=== PATIENT | female | born 1975 | race Caucasian/White ===

== ENCOUNTER 2021-03-24 07:52 | Emergency (ER) | payer BC ==
--- NOTE | 2021-03-24 08:03 | ERPHSYRPT ---
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 She is also been exposed to her mother and stepfather who have both tested positive for COVID-19 infection. On Sunday she noticed low-grade fevers. Since that time she has had headache and dizziness. Patient does have a history of migraine headaches and an intracranial mass but this headache is different. She did not suffer any head trauma. Patient has a history of Shyann's thyroiditis. Patient denies chest pain. She denies shortness of breath. She has a sore throat but no cough. She has no abdominal pain. She has had no nausea vomiting or diarrhea. Patient to go home Covid test yesterday and it was positive. She has been vaccinated. Patient's primary care provider is Dr. Jenkins. Timing/Duration: day(s) (2) Fever Severity: mild Fever Therapy MANAGER LINE: none Associated Symptoms: headache, sore throat Allergies/Adverse Reactions: No Known Drug Allergies Allergy (Unverified 08/30/12 09:34) Home Medications: Levothyroxine Sodium [Tirosint-Viky] 112 mcg PO DAILY 03/24/21 [History] Hx Tetanus, Diphtheria Vaccination/Date Given: No Hx Influenza Vaccination/Date Given: Yes (2011) Hx Pneumococcal Vaccination/Date Given: No Travel Risk - International Travel Have you traveled outside of the country in past 3 weeks: No - Coronavirus Screening Are you exhibiting any of the following symptoms?: Yes Symptoms: Fever, Headaches/Body Aches/Fatigue Close contact with a COVID-19 positive Pt in past 14-21 Days: Yes - Vaccine Status Have you recieved a Covid-19 vaccination: Yes - Review of Systems Constitutional: No Symptoms Eyes: No Symptoms Ears, Nose, & Throat: Throat Pain Respiratory: No Symptoms Cardiac: No Symptoms Abdominal/Gastrointestinal: No Symptoms Genitourinary Symptoms: No Symptoms Musculoskeletal: No Symptoms Skin: No Symptoms Neurological: Dizziness, Headache Psychological: No Symptoms Endocrine: No Symptoms Hematologic/Lymphatic: No Symptoms Immunological/Allergic: No Symptoms All Other Systems: Reviewed and Negative - Past Medical History Pertinent Past Medical History: Yes Neurological History: No Pertinent History ENT History: No Pertinent History Cardiac History: No Pertinent History, Arrhythmia, Other Respiratory History: No Pertinent History Endocrine Medical History: Other GI Medical History: No Pertinent History Psycho-Social History: No Pertinent History Female Reproductive Disorders: Other Other Medical History: Hypotension and bradycardia - Past Surgical History Past Surgical History: No Female Surgical History: Breast Implant - Social History Smoking Status: Never smoker Exposure to second hand smoke: No Drug Use: none Patient Lives Alone: No - Nursing Vital Signs Nursing Vital Signs: Initial Vital Signs Temperature 99 F 03/24/21 08:02 Pulse Rate 85 03/24/21 08:02 Respiratory Rate 15 03/24/21 08:02 Blood Pressure 119/77 03/24/21 08:02 O2 Sat by Pulse Oximetry 98 03/24/21 08:02 Pain Scale Pain Intensity 8 - Physical Exam General Appearance: no apparent distress, alert, thin Eye Exam: PERRL/EOMI, eyes nml inspection ENT Exam: normal ENT inspection, pharynx normal Neck Exam: normal inspection, non-tender, supple, full range of motion, trachea midline Respiratory Exam: normal breath sounds, lungs clear, no respiratory distress, no accessory muscle use, No chest non-tender, No respiratory distress Cardiovascular/Chest Exam: normal heart sounds, regular rate/rhythm Gastrointestinal/Abdominal Exam: soft, non tender, no distention, no mass, no guarding, no ecchymosis, no organomegaly, no pulsatile mass, normal bowel sounds Pelvic Exam: not done Rectal Exam: not done Extremity Exam: non-tender Neurologic Exam: alert, oriented x 3, cooperative, 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, normal mood/affect, nml cerebellar function, nml station & gait, sensation nml Skin Exam: normal color, warm, dry Lymphatic: No adenopathy SpO2 Interpretation: normal O2 Delivery: Room Air - Course Nursing assessment & vital signs reviewed: Yes Ordered Tests: Active Orders 24 hr Category Date Time Status EKG-ER Only STAT Care 03/24/21 08:23 Active IV Insertion STAT Care 03/24/21 08:23 Active Isolation, Initiate & Maintain STAT Care 03/24/21 08:26 Active CHEST 1 VIEW (PORTABLE) Stat Exams 03/24/21 08:23 Completed HEAD WITHOUT CONTRAST [CT] Stat Exams 03/24/21 08:40 Completed BLOOD CULTURE Stat Lab 03/24/21 09:00 Received CBC W DIFF Stat Lab 03/24/21 08:59 Completed CMP Stat Lab 03/24/21 08:59 Completed D-DIMER QUANTITATIVE Stat Lab 03/24/21 08:59 Completed Ferritin Stat Lab 03/24/21 08:59 Completed INFLUENZA A+B LUIS Stat Lab 03/24/21 09:00 Completed LDH-LACTATE DEHYDROGENASE Stat Lab 03/24/21 08:59 Completed Lactic Acid Stat Lab 03/24/21 08:23 Completed [place] Screen Stat Lab 03/24/21 08:59 Completed T4 (Thyroxine) Stat Lab 03/24/21 08:59 Completed TROPONIN Q3H Lab 03/24/21 08:59 Completed TROPONIN Q3H Lab 03/24/21 11:30 Ordered TROPONIN Q3H Lab 03/24/21 14:30 Ordered TROPONIN Q3H Lab 03/24/21 17:30 Ordered TROPONIN Q3H Lab 03/24/21 20:30 Ordered TSH, 3RD Generation Stat Lab 03/24/21 08:59 Completed UA W/RFX UR CULTURE Stat Lab 03/24/21 09:51 Completed Medication Summary Discontinued Medications Generic Name Dose Route Start Last Admin Trade Name Freq PRN Reason Stop Dose Admin Hydrocodone Bitart/Acetaminophen 10 ml 03/24/21 08:25 03/24/21 09:57 Hydrocodone/Acetaminophen 5 Ml Udcup PO 03/24/21 08:26 10 ml STAT STA Administration Hydrocodone Bitart/Acetaminophen Confirm 03/24/21 09:44 Hydrocodone/Acetaminophen 5 Ml Udcup Administered 03/24/21 09:45 Dose 10 ml .ROUTE .STK-MED ONE Methylprednisolone Sodium 0 mg 03/24/21 08:41 03/24/21 09:57 Succinate 125 mg/ Sterile IV 03/24/21 08:42 125 mg Water 2 ml STAT ONE Administration Sodium Chloride 1,000 mls @ 999 mls/hr 03/24/21 08:23 03/24/21 09:56 Sodium Chloride 0.9% 1000 Ml IV 03/24/21 09:23 999 mls/hr .Q1H1M STA Administration Sodium Chloride Confirm 03/24/21 09:44 Sodium Chloride 0.9% 1000 Ml Administered 03/24/21 09:45 Dose 1,000 mls @ ud .ROUTE .STK-MED ONE Methylprednisolone Sodium Succinate Confirm 03/24/21 09:44 Methylprednis Sod Succ 125 Mg/2 Ml Vial Administered 03/24/21 09:45 Dose 125 mg .ROUTE .STK-MED ONE Lab/Rad Data: Laboratory Result Diagrams 03/24/21 08:59 03/24/21 08:59 Laboratory Results 03/24/21 03/24/21 03/24/21 Range/Units 09:51 09:00 09:00 WBC (4.0-10.5) K/mm3 RBC (4.1-5.4) M/mm3 Hgb (12.0-16.0) gm/dl Hct (35-47) % MCV (78-100) fl MCH (26-32) pg MCHC (32-36) g/dl RDW (11.5-14.0) % Plt Count (150-450) K/mm3 MPV (7.5-11.0) fl Gran % (36.0-66.0) % Eos # (Auto) (0-0.5) Absolute Lymphs (auto) (1.0-4.6) Absolute Monos (auto) (0.0-1.3) Lymphocytes % (24.0-44.0) % Monocytes % (0.0-12.0) % Eosinophils % (0.00-5.0) % Basophils % (0.0-0.4) % Absolute Granulocytes (1.4-6.9) Basophils # (0-0.4) D-Dimer (215-500) ng/mL Sodium (137-145) mmol/L Potassium (3.5-5.1) mmol/L Chloride (98-107) mmol/L Carbon Dioxide (22-30) mmol/L Anion Gap (5-15) MEQ/L BUN (7-17) mg/dL Creatinine (0.52-1.04) mg/dL Estimated GFR ML/MIN Glucose (74-106) mg/dL Lactic Acid (0.4-2.0) Calcium (8.4-10.2) mg/dL Ferritin (6.24-137) ng/mL Total Bilirubin (0.2-1.3) mg/dL AST (14-36) U/L ALT (0-35) U/L Alkaline Phosphatase (38-126) U/L Lactate Dehydrogenase (120-246) U/L Troponin I (0.000-0.034) ng/mL Serum Total Protein (6.3-8.2) g/dL Albumin (3.5-5.0) g/dL Thyroxine (T4) (5.53-10.96) ug/dL TSH 3rd Generation (0.47-4.68) mIU/L Urine Color STRAW (YELLOW) Urine Appearance CLEAR (CLEAR) Urine pH 6.0 (5-6) Ur Specific [place] 1.003 (1.005-1.025) Urine Protein NEGATIVE (Negative) Urine Ketones NEGATIVE (NEGATIVE) Urine Blood NEGATIVE (0-5) Brian/ul Urine Nitrite NEGATIVE (NEGATIVE) Urine Bilirubin NEGATIVE (NEGATIVE) Urine Urobilinogen NEGATIVE (0-1) mg/dL Ur Leukocyte Esterase NEGATIVE (NEGATIVE) Urine WBC (Auto) 0-2 (0-5) /HPF Urine RBC (Auto) 0-2 (0-2) /HPF U Epithel Cells (Auto) NONE (FEW) /HPF Urine Bacteria (Auto) FEW (NEGATIVE) /HPF Urine Culture Reflexed NO (NO) Urine Glucose NEGATIVE (NEGATIVE) mg/dL Monoscreen (Negative) Influenza Type A Ag NEGATIVE (NEGATIVE) Influenza Type B Ag NEGATIVE (NEGATIVE) Group A Strep Antibody NOT DETECTED (NEGATIVE) 03/24/21 03/24/21 03/24/21 Range/Units 08:59 08:59 08:59 WBC (4.0-10.5) K/mm3 RBC (4.1-5.4) M/mm3 Hgb (12.0-16.0) gm/dl Hct (35-47) % MCV (78-100) fl MCH (26-32) pg MCHC (32-36) g/dl RDW (11.5-14.0) % Plt Count (150-450) K/mm3 MPV (7.5-11.0) fl Gran % (36.0-66.0) % Eos # (Auto) (0-0.5) Absolute Lymphs (auto) (1.0-4.6) Absolute Monos (auto) (0.0-1.3) Lymphocytes % (24.0-44.0) % Monocytes % (0.0-12.0) % Eosinophils % (0.00-5.0) % Basophils % (0.0-0.4) % Absolute Granulocytes (1.4-6.9) Basophils # (0-0.4) D-Dimer < 215 L (215-500) ng/mL Sodium (137-145) mmol/L Potassium (3.5-5.1) mmol/L Chloride (98-107) mmol/L Carbon Dioxide (22-30) mmol/L Anion Gap (5-15) MEQ/L BUN (7-17) mg/dL Creatinine (0.52-1.04) mg/dL Estimated GFR ML/MIN Glucose (74-106) mg/dL Lactic Acid (0.4-2.0) Calcium (8.4-10.2) mg/dL Ferritin (6.24-137) ng/mL Total Bilirubin (0.2-1.3) mg/dL AST (14-36) U/L ALT (0-35) U/L Alkaline Phosphatase (38-126) U/L Lactate Dehydrogenase (120-246) U/L Troponin I < 0.012 (0.000-0.034) ng/mL Serum Total Protein (6.3-8.2) g/dL Albumin (3.5-5.0) g/dL Thyroxine (T4) (5.53-10.96) ug/dL TSH 3rd Generation (0.47-4.68) mIU/L Urine Color (YELLOW) Urine Appearance (CLEAR) Urine pH (5-6) Ur Specific [place] (1.005-1.025) Urine Protein (Negative) Urine Ketones (NEGATIVE) Urine Blood (0-5) Brian/ul Urine Nitrite (NEGATIVE) Urine Bilirubin (NEGATIVE) Urine Urobilinogen (0-1) mg/dL Ur Leukocyte Esterase (NEGATIVE) Urine WBC (Auto) (0-5) /HPF Urine RBC (Auto) (0-2) /HPF U Epithel Cells (Auto) (FEW) /HPF Urine Bacteria (Auto) (NEGATIVE) /HPF Urine Culture Reflexed (NO) Urine Glucose (NEGATIVE) mg/dL Monoscreen NEGATIVE (Negative) Influenza Type A Ag (NEGATIVE) Influenza Type B Ag (NEGATIVE) Group A Strep Antibody (NEGATIVE) 03/24/21 03/24/21 03/24/21 Range/Units 08:59 08:59 08:23 WBC 4.1 (4.0-10.5) K/mm3 RBC 4.66 (4.1-5.4) M/mm3 Hgb 13.7 (12.0-16.0) gm/dl Hct 43.2 (35-47) % MCV 92.7 (78-100) fl MCH 29.4 (26-32) pg MCHC 31.7 L (32-36) g/dl RDW 12.3 (11.5-14.0) % Plt Count 122 L (150-450) K/mm3 MPV 11.9 H (7.5-11.0) fl Gran % 83.7 H (36.0-66.0) % Eos # (Auto) 0.04 (0-0.5) Absolute Lymphs (auto) 0.30 L (1.0-4.6) Absolute Monos (auto) 0.31 (0.0-1.3) Lymphocytes % 7.3 L (24.0-44.0) % Monocytes % 7.5 (0.0-12.0) % Eosinophils % 1.0 (0.00-5.0) % Basophils % 0.5 (0.0-0.4) % Absolute Granulocytes 3.46 (1.4-6.9) Basophils # 0.02 (0-0.4) D-Dimer (215-500) ng/mL Sodium 140 (137-145) mmol/L Potassium 4.1 (3.5-5.1) mmol/L Chloride 103 (98-107) mmol/L Carbon Dioxide 27 (22-30) mmol/L Anion Gap 14.3 (5-15) MEQ/L BUN 13 (7-17) mg/dL Creatinine 0.85 (0.52-1.04) mg/dL Estimated GFR > 60.0 ML/MIN Glucose 91 (74-106) mg/dL Lactic Acid 0.7 (0.4-2.0) Calcium 9.6 (8.4-10.2) mg/dL Ferritin 249 H (6.24-137) ng/mL Total Bilirubin 0.70 (0.2-1.3) mg/dL AST 26 (14-36) U/L ALT 15 (0-35) U/L Alkaline Phosphatase 94 (38-126) U/L Lactate Dehydrogenase 114 L (120-246) U/L Troponin I (0.000-0.034) ng/mL Serum Total Protein 7.2 (6.3-8.2) g/dL Albumin 4.5 (3.5-5.0) g/dL Thyroxine (T4) 13.5 H (5.53-10.96) ug/dL TSH 3rd Generation 0.196 L (0.47-4.68) mIU/L Urine Color (YELLOW) Urine Appearance (CLEAR) Urine pH (5-6) Ur Specific [place] (1.005-1.025) Urine Protein (Negative) Urine Ketones (NEGATIVE) Urine Blood (0-5) Brian/ul Urine Nitrite (NEGATIVE) Urine Bilirubin (NEGATIVE) Urine Urobilinogen (0-1) mg/dL Ur Leukocyte Esterase (NEGATIVE) Urine WBC (Auto) (0-5) /HPF Urine RBC (Auto) (0-2) /HPF U Epithel Cells (Auto) (FEW) /HPF Urine Bacteria (Auto) (NEGATIVE) /HPF Urine Culture Reflexed (NO) Urine Glucose (NEGATIVE) mg/dL Monoscreen (Negative) Influenza Type A Ag (NEGATIVE) Influenza Type B Ag (NEGATIVE) Group A Strep Antibody (NEGATIVE) - Progress Progress: improved, re-examined Progress Note: 03/24/21 10:11 CAT scan of the head shows no intracranial abnormality. Chest x-ray shows no acute cardiopulmonary process. Counseled pt/family regarding: lab results, diagnosis, need for follow-up, rad results - Departure Departure Disposition: Home Clinical Impression: Fever, Headache, Viral illness, Hyperthyroidism Condition: Stable Critical Care Time: No Referrals: JAGRUTI JENKINS MD [Primary Care Provider] - Follow up/PCP as directed Additional Instructions: Drink plenty of fluids. Take medication as prescribed. Follow-up with your primary care provider for further management. Quarantine yourself until you receive the results of your COVID-19 test. Forms: Work/School Release Form
[2021-03-24] MEDS ORDERED: Sodium Chloride 0.9% 1000 ML 1,000 ML IV STA (08:23)
[2021-03-24] MEDS ORDERED: HYDROCODONE-ACETAMIN 2.5-108/5 ML SOLUTION PO STA (08:25)
[2021-03-24] MEDS ORDERED: solu-MEDROL 125 MG, Sterile H2O 10 ml 2 ML IV ONE ×2 (08:41)
[2021-03-24 09:02] LABS: Absolute Neutrophil Ct (ANC) 3.46 (1.4-6.9); BASOPHIL % 0.5 % (0.0-0.4); Basophil (Absolute #) 0.02 (0-0.4); Eosinophil (Absolute #) 0.04 (0-0.5); Hematocrit 43.2 % (35-47); Hemoglobin 13.7 gm/dl (12.0-16.0); Lymphocytes % 7.3 % (24.0-44.0); Mean Cell Volume 92.7 fl (78-100); Mean Corpuscular Hemoglobin 29.4 pg (26-32); Mean Corpuscular Hgb Concent. 31.7 g/dl (32-36); Mean Platelet Volume 11.9 fl (7.5-11.0); Monocyte (Absolute #) 0.31 (0.0-1.3); Monocytes % 7.5 % (0.0-12.0); Neutrophil % 83.7 % (36.0-66.0); Platelet Count 122 K/mm3 (150-450); Red Blood Count 4.66 M/mm3 (4.1-5.4); Red Cell Distribution Width 12.3 % (11.5-14.0); White Blood Count 4.1 K/mm3 (4.0-10.5)
[2021-03-24 09:24] LABS: INFLUENZA A NEGATIVE (NEGATIVE); INFLUENZA B NEGATIVE (NEGATIVE)
--- NOTE | 2021-03-24 09:41 | XRAY ---
Indication: Headache. Mass. Multiple contiguous axial images obtained through the head without contrast. Comparison: August 17, 2010. Ventriculosulcal pattern appears symmetric. No acute intracranial hemorrhage, abnormal extra-axial fluid collection, or mass effect. Fourth ventricle is midline without hydrocephalus. Horner-white matter differentiation preserved. Bony calvarium intact. Left sphenoid sinus demonstrates grossly stable complete opacification. Left sphenoid sinus and petrous portion of the left temporal bone demonstrate grossly stable dysplastic appearance. 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 Remaining paranasal sinuses and mastoid air cells are clear. Impression: Continued negative CT head without contrast exam with stable chronic features detailed above.
[2021-03-24] MEDS ORDERED: Sodium Chloride 0.9% 1000 ML 1,000 ML ONE (09:44)
[2021-03-24] MEDS ORDERED: solu-MEDROL ONE (09:44)
[2021-03-24] MEDS ORDERED: HYDROCODONE-ACETAMIN 2.5-108/5 ML SOLUTION ONE (09:44)
--- NOTE | 2021-03-24 10:07 | XRAY ---
Indication: Fever. Comparison: August 30, 2012. Portable chest again demonstrates normal heart, lungs, and bony thorax.
[2021-03-24 10:08] LABS: ALBUMIN 4.5 g/dL (3.5-5.0); ALKALINE PHOSPHATASE 94 U/L (38-126); ANION GAP 14.3 MEQ/L (5-15); BLOOD UREA NITROGEN 13 mg/dL (7-17); CHLORIDE 103 mmol/L (98-107); Calcium 9.6 mg/dL (8.4-10.2); Carbon Dioxide 27 mmol/L (22-30); Creatinine 1 0.85 mg/dL (0.52-1.04); EST GLOMERULAR FILTRATION RATE > 60.0 ML/MIN; Ferritin 249 ng/mL (6.24-137); Glucose 91 mg/dL (74-106); LDH-LACTATE DEHYDROGENASE 114 U/L (120-246); Potassium 4.1 mmol/L (3.5-5.1); SGOT/AST 26 U/L (14-36); SGPT/ALT 15 U/L (0-35); SODIUM 140 mmol/L (137-145); T4 (Thyroxine) 13.5 ug/dL (5.53-10.96); TSH, 3RD Generation 0.196 mIU/L (0.47-4.68); Total Protein 7.2 g/dL (6.3-8.2)
[2021-03-24 10:14] LABS: Appearance CLEAR (CLEAR); Bacteria FEW /HPF (NEGATIVE); Bilirubin NEGATIVE (NEGATIVE); Blood NEGATIVE Ery/ul (0-5); Glucose NEGATIVE (NEGATIVE); Ketones NEGATIVE (NEGATIVE); Leukocyte Esterase NEGATIVE (NEGATIVE); Nitrite NEGATIVE (NEGATIVE); Protein,Urine Dip NEGATIVE (Negative); RBC 0-2 /HPF (0-2); Specific Gravity 1.003 (1.005-1.025); Urobilinogen NEGATIVE mg/dL (0-1); WBC 0-2 /HPF (0-5)
[2021-03-24 11:07] VITALS: BP 101/60; PULSE 64; O2SAT 95
== END 2021-03-24 11:39 | disposition home or self-care (01) ==
LOC: ED 07:52
DX: B34.9 Viral infection, unspecified (principal); R50.9 Fever, unspecified; R51.9 Headache, unspecified; R42 Dizziness and giddiness; J02.9 Acute pharyngitis, unspecified; E06.3 Autoimmune thyroiditis
CPT/HCPCS: 36000; 36415; 70450; 71045; 80053; 81001; 82728; 83605; 83615; 84436; 84443; 84484; 85025; 85379; 86308; 87040; 87400; 87651; 93005; 96374; 99284; U0003; J2930; A9270-GY

== ENCOUNTER 2021-07-13 11:20 | Observation (INO) | payer BC, OTHER ==
[2021-07-13] MEDS ORDERED: MORPHINE SULFATE 4 MG INJ IV PRN (12:40)
[2021-07-13 13:01] LABS: Absolute Neutrophil Ct (ANC) 4.73 (1.4-6.9); Basophil (Absolute #) 0.01 (0-0.4); Eosinophil % 0.5 % (0.00-5.0); Eosinophil (Absolute #) 0.03 (0-0.5); Hematocrit 39.7 % (35-47); Hemoglobin 12.7 gm/dl (12.0-16.0); Lymphocyte (Absolute #) 0.77 (1.0-4.6); Mean Cell Volume 94.3 fl (78-100); Mean Corpuscular Hemoglobin 30.2 pg (26-32); Mean Platelet Volume 11.5 fl (7.5-11.0); Monocyte (Absolute #) 0.39 (0.0-1.3); Monocytes % 6.6 % (0.0-12.0); Neutrophil % 79.7 % (36.0-66.0); Platelet Count 139 K/mm3 (150-450); Red Blood Count 4.21 M/mm3 (4.1-5.4); White Blood Count 5.9 K/mm3 (4.0-10.5)
[2021-07-13] MEDS: Sodium Chloride 0.9% 1000 ML 1,000 ML IV SCH ×2 (13:03→23:30)
[2021-07-13] MEDS: Zofran 4 MG/2 ML VIAL IV PRN ×3 (13:04→21:55)
[2021-07-13 13:10] LABS: INFLUENZA A NEGATIVE (NEGATIVE); INFLUENZA B NEGATIVE (NEGATIVE); RESPIRATORY SYNCTIAL VIRUS NEGATIVE (Negative); SARS-CoV-2 Xpert Express NEGATIVE (NEGATIVE)
[2021-07-13 13:12] LABS: ALBUMIN 4.1 g/dL (3.5-5.0); ALKALINE PHOSPHATASE 64 U/L (38-126); BLOOD UREA NITROGEN 8 mg/dL (7-17); CHLORIDE 102 mmol/L (98-107); Calcium 8.8 mg/dL (8.4-10.2); Carbon Dioxide 31 mmol/L (22-30); Creatinine 1 0.75 mg/dL (0.52-1.04); EST GLOMERULAR FILTRATION RATE > 60.0 ML/MIN; Glucose 88 mg/dL (74-106); Potassium 3.8 mmol/L (3.5-5.1); SGOT/AST 34 U/L (14-36); SGPT/ALT 17 U/L (0-35); SODIUM 139 mmol/L (137-145)
[2021-07-13] MEDS ORDERED: GI COCKTAIL 45 ML (Maalox/Lidocaine) PO ONE (13:27)
[2021-07-13] MEDS ORDERED: NORCO 5/325 MG PO PRN (13:40)
[2021-07-13] MEDS ORDERED: Hydromorphone 1 mg/ml Injection IV PRN (13:52)
[2021-07-13] MEDS ORDERED: Compazine 10 MG/2 ML IV PRN (14:26)
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
[2021-07-13] MEDS: Hydromorphone 1 mg/ml Injection IV PRN ×2 (17:27→21:55)
[2021-07-13] MEDS: SYNTHROID 112 MCG PO SCH (18:37)
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
[2021-07-13 22:47] LABS: Bacteria MODERATE /HPF (NEGATIVE); Epithelial Cells RARE /HPF (FEW); Mucus SLIGHT /HPF (NEGATIVE); WBC >100 /HPF (0-5)
[2021-07-13 22:51] LABS: Appearance SLIGHTLY CLOUDY (CLEAR); Bilirubin NEGATIVE (NEGATIVE); Dipstick done @ ? MAIN LAB; Glucose NEGATIVE (NEGATIVE); Ketones LARGE-80 (NEGATIVE); Nitrite POSITIVE (NEGATIVE); Ph 5.5 (5-6); Protein,Urine Dip NEGATIVE (Negative); RBC SMALL Ery/ul (0-5); Urobilinogen 0.2 mg/dL (0-1)
[2021-07-13 22:52] LABS: Urine Cultured Indicated? YES
[2021-07-13] MEDS ORDERED: ROCEPHIN 1 Gm-D5w 50 ml Bag** 1 G/50 ML IVPB IV SCH (23:22)
[2021-07-13] MEDS: TYLENOL 325 MG PO PRN (23:30)
[2021-07-14] MEDS: TYLENOL 325 MG PO PRN (07:33)
[2021-07-14] MEDS: Hydromorphone 1 mg/ml Injection IV PRN (08:09)
[2021-07-14 08:16] VITALS: BP 105/53; PULSE 48; O2SAT 96
[2021-07-14] MEDS ORDERED: OXYCODONE-ACETAMINOPHEN 10-325 PO PRN (09:04)
[2021-07-14] MEDS ORDERED: LEVOTHYROXINE SODIUM PO SCH (10:00)
[2021-07-14] MEDS: SYNTHROID 112 MCG PO SCH (10:01)
[2021-07-14] MEDS: Zofran 4 MG/2 ML VIAL IV PRN (10:31)
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
[2021-07-14] MEDS ORDERED: ROCEPHIN 1 Gm-D5w 50 ml Bag** 1 G/50 ML IVPB IV SCH (22:00)
== END 2021-07-14 11:46 | disposition home or self-care (01) ==
LOC: MED SURG 11:46
PROVIDERS: ADMIT General Practice; ATTEND General Practice
DX: S06.0X9D Concussion with loss of consciousness of unspecified duration, subsequent encounter (principal); S29.9XXD Unspecified injury of thorax, subsequent encounter; N00.9 Acute nephritic syndrome with unspecified morphologic changes; S37.009D Unspecified injury of unspecified kidney, subsequent encounter; S39.91XD Unspecified injury of abdomen, subsequent encounter; V89.2XXD Person injured in unspecified motor-vehicle accident, traffic, subsequent encounter; Z79.899 Other long term (current) drug therapy; Z20.828 Contact with and (suspected) exposure to other viral communicable diseases
CPT/HCPCS: 0241U; 36415; 70553; 71270; 74178; 80053; 81015; 85025; 87077; 87086; 87186; G0378; J0696; J1170; J2270; J2405; A9270-GY

== ENCOUNTER 2023-12-10 05:54 | Day surgery (SDC) | payer BC ==
[2023-12-10] MEDS: Lactated Ringers 1,000 ML IV SCH (06:22)
[2023-12-10 06:35] VITALS: RESP 16
[2023-12-10] MEDS ORDERED: DIPRIVAN 200 MG/20 ML IV ONE ×2 (07:01→07:23)
[2023-12-10 08:11] VITALS: TEMP 97.6
[2023-12-10 08:21] VITALS: BP 124/48; PULSE 48; O2SAT 100
--- NOTE | 2023-12-10 11:11 | OP ---
SURGERY DATE/TIME: 12/10/2023 5326 - [id number] PREOPERATIVE DIAGNOSIS: Dyspepsia, bloating, and screening colon exam. POSTOPERATIVE DIAGNOSIS: Gastritis and normal colon. PROCEDURE: Esophagogastroduodenoscopy with cold forceps biopsy of the gastric antrum and colonoscopy. SURGEON: Rajat Harmon MD ANESTHESIA: Medications given by the anesthesia department. INDICATIONS: The patient is a 48-year-old white female who presents now for bloating and dyspepsia which she has had for months. She reports it is even to the point now where she is having trouble with just drinking water. The patient does not have any specific bowel problems presently, has never had a screening colonoscopy. The patient was apprised of the risks of the procedure including risk of perforation, phlebitis, untoward reaction to medication, bleeding, and missed lesions. The patient verbalized her understanding and desired to have the procedure performed. DESCRIPTION OF PROCEDURE AND FINDINGS: The patient was given medication by the anesthesia department. She had continuous pulse oximetry, ECG monitoring, intermittent blood pressure monitoring, and end tidal CO2 monitoring during the examination. She was placed in left lateral decubitus position. Bite block was placed. Flexible Olympus gastroscope was used to intubate the oropharynx. A view of the larynx was obtained and was normal. The scope was easily introduced in the esophagus which appeared to be normal throughout its length. The stomach was entered where normal gastric rugal folds were seen and these distended nicely with insufflation of air. The scope was passed along the greater curvature of the stomach to the antrum. The pylorus was encountered and intubated. Duodenum was found to be normal. The scope was withdrawn toward the stomach. Retroflex view was obtained of the lesser curvature, fundus, and cardia regions of the stomach and these appeared to be essentially normal. Biopsies were obtained from the gastric antrum to rule out the presence of Helicobacter pylori-type organisms. The scope was removed from the patient. Next, digital rectal examination was performed and revealed normal anal sphincter tone and no masses. Flexible Olympus videocolonoscope was used to intubate the rectum. A view of the colon was developed sequentially to the cecum. Upon insertion and withdrawal including retroflexion in the rectum, no mucosal lesions were encountered. The scope was removed from the patient who tolerated the procedure well and was sent back to outpatient recovery in good condition. The prep was noted to be fairly good.
== END 2023-12-10 08:28 | disposition home or self-care (01) ==
LOC: SDC 05:54
PROVIDERS: ATTEND Family Medicine
DX: Z12.11 Encounter for screening for malignant neoplasm of colon (principal); R10.13 Epigastric pain; R14.0 Abdominal distension (gaseous); K29.70 Gastritis, unspecified, without bleeding
CPT/HCPCS: J2704

== ENCOUNTER 2024-06-03 06:31 | Day surgery (SDC) | payer BC ==
[2024-06-03] MEDS: CEFAZOLIN 2 GM/100 ML NaCl 2 GM/100 ML IVPB IV SCH (07:09)
[2024-06-03] MEDS: Lactated Ringers 1,000 ML IV SCH (07:10)
[2024-06-03 07:21] LABS: Hematocrit 39.4 % (34.1-44.9); Mean Cell Volume 91.6 fL (79.4-94.8); Mean Corpuscular Hemoglobin 30.2 pg (25.6-32.2); Platelet Count 167 x10^3/uL (182-369); Red Cell Distribution Width 12.5 % (11.7-14.4); White Blood Count 3.5 x10^3/uL (3.98-10.04)
[2024-06-03 07:34] LABS: ALBUMIN 4.4 g/dL (3.5-5.0); ANION GAP 10.3 MEQ/L (5-15); BILIRUBIN,TOTAL 0.8 mg/dL (0.2-1.3); Calcium 9.2 mg/dL (8.4-10.2); Creatinine 1 0.87 mg/dL (0.52-1.04); EST GLOMERULAR FILTRATION RATE 81.1 ML/MIN; Potassium 4.3 mmol/L (3.5-5.1); Total Protein 6.8 g/dL (6.3-8.2)
[2024-06-03] MEDS ORDERED: Epinephrine Preservative Free 1 MG/ML ONE (08:19)
[2024-06-03] MEDS ORDERED: NEURONTIN ONE (08:29)
[2024-06-03] MEDS ORDERED: Decadron 4 MG ONE (08:29)
[2024-06-03] MEDS ORDERED: TYLENOL EXTRA STRENGTH 500 MG ONE (08:29)
[2024-06-03] MEDS ORDERED: celeBREX 100 MG ONE (08:30)
[2024-06-03] MEDS: NEURONTIN PO ONE (08:31)
[2024-06-03] MEDS: TYLENOL EXTRA STRENGTH 500 MG PO ONE (08:31)
[2024-06-03] MEDS: celeBREX 100 MG PO ONE (08:31)
[2024-06-03] MEDS: Decadron 4 MG PO ONE (08:31)
[2024-06-03] MEDS ORDERED: Versed 2 MG/2 ML Injection ONE (08:39)
[2024-06-03] MEDS ORDERED: Marcaine Mpf 0.5% Vial 30 Ml ONE (08:39)
[2024-06-03] MEDS ORDERED: EXPAREL 133 MG/10 ML VIAL IJ ONE (08:39)
[2024-06-03] MEDS ORDERED: Xylocaine-Mpf 2% 5 Ml Vial ONE ×2 (08:47→11:35)
[2024-06-03] MEDS ORDERED: propofoL IV ONE (08:47)
[2024-06-03] MEDS ORDERED: ROCURONIUM BROMIDE IV ONE (09:13)
[2024-06-03] MEDS ORDERED: Zofran 4 MG/2 ML VIAL ONE (09:13)
[2024-06-03] MEDS ORDERED: SUBLIMAZE 100 MCG/2 ML ONE (09:49)
[2024-06-03] MEDS ORDERED: Lactated Ringers 1,000 ML IV ONE (09:51)
[2024-06-03] MEDS ORDERED: Ephedrine Sulfate 50 MG/ML ONE (11:16)
[2024-06-03] MEDS ORDERED: BRIDION 200MG/2ML IV ONE (11:29)
[2024-06-03] MEDS ORDERED: TORAdol 30 mg Injection ONE (11:32)
[2024-06-03] MEDS ORDERED: DEXMEDETOMIDINE 80 MCG/20ML-NS IV ONE (11:35)
[2024-06-03] MEDS ORDERED: Naropin 0.5% 30 ML VIAL ONE (11:35)
--- NOTE | 2024-06-03 11:56 | XRAY ---
Indication: Right ankle arthroscopy with synovectomy, possible osteochondral defect, Achilles tendon debridement, and lateral ankle stabilization. Intraoperative fluoroscopy provided for 2 minutes 22 seconds. Numerous digital spot and cine images obtained. Metallic localizer tips seen adjacent to posterior calcaneus, lateral malleolus, and mid talus. Correlate with intraoperative findings/report.
[2024-06-03 12:56] VITALS: RESP 16
[2024-06-03 13:16] VITALS: BP 116/76; PULSE 55; TEMP 98.2; O2SAT 100
--- NOTE | 2024-06-03 14:47 | XRAY ---
Two minutes and 22 seconds of fluoroscopy was used in surgery for a right ankle arthroscopy with synovectomy, possible osteochondral defect, Achilles tendon debridement, and lateral ankle stabilization.
--- NOTE | 2024-06-04 12:00 | OP ---
SURGERY DATE/TIME: 06/03/2024 [id number] PREOPERATIVE DIAGNOSES: 1) Right ankle synovitis. 2) Right ankle pain. 3) Right ankle instability. 4) Achilles insertional tendinitis. 5) Difficulty with ambulation. 6) Bone marrow edema of tibia. 7) Bone marrow edema of calcaneus. POSTOPERATIVE DIAGNOSES: 1) Right ankle synovitis. 2) Right ankle pain. 3) Right ankle instability. 4) Achilles insertional tendinitis. 5) Difficulty with ambulation. 6) Bone marrow edema of tibia. 7) Bone marrow edema of calcaneus. PROCEDURES: 1) Ankle arthroscopy with limited synovectomy. 2) Achilles tendon debridement. 3) Lateral ankle stabilization. SURGEON: Jr Graham DPM. SENIOR NET C DEVELOPER: FLOYD Rangel. ANESTHESIA: General with a preoperative popliteal and saphenous block. HEMOSTASIS: Thigh tourniquet set to 250 mmHg for a total of 50 total tourniquet minutes. ESTIMATED BLOOD LOSS: Approximately 10 mL. MATERIALS: 4-0 Monocryl, 3-0 nylon, one 2.9 JuggerKnot with BroadBand to a 2.9 Betta Link and then two 1.45 JuggerKnots. INDICATIONS: The patient is a very pleasant 48-year-old female who presented to my clinic with complaints of ankle pain to the right lower extremity and difficulty with higher-impact activities, including running, and ankle pain at the end of the day. 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 At this time, she would like to return to sport. We have discussed multiple attempts at clinical assessment and addressing her pain. She has failed all conservative therapy at this time. An EMG was obtained demonstrating no obvious indication of nerve damage, and an MRI was taken demonstrating some bone marrow edema of the calcaneus and the tibia with attenuation of the ATFL as well as insertion of the Achilles tendon showing some level of disease. From that standpoint, at this time, patient has been made aware of all risks, complications, and benefits of surgical intervention including, but not limited to, infection, hematoma, seroma, possibility of delayed wound healing, non-wound healing, possible failure of surgical intervention, and possible need for further surgical intervention at a later date. No guarantees were provided as to the outcome of surgical intervention. Plenty of time was allowed for the patient to ask questions which were answered to her apparent satisfaction. So, at this time, we decided to proceed. DESCRIPTION OF PROCEDURE AND FINDINGS: Patient was brought into the PACU prior to the procedure and provided a popliteal and saphenous block, see anesthesia report for details. Following this, patient was brought into the operating room and placed on the operating room table in the supine position. General anesthesia was administered until the patient was adequately sedated. A well-padded thigh tourniquet was applied to the patient's right thigh and the tourniquet was set to 250 mmHg. At this time, the right lower extremity was prepped and draped in the typical sterile fashion and lowered onto the surgical field. Attention was directed to the landmarks of the medial malleolus and lateral malleolus as well as the palpable dell at the anterior aspect of the ankle joint where lines were utilized to map out the anterolateral and anteromedial portal sites. Once this was performed, just medial to the tibialis anterior tendon, a stab incision was made utilizing a 50 mL syringe with an 18-gauge needle, insufflating the joint with lactated Ringer's. Once this was performed, the foot dorsiflexed in the typical manner. Following this, an 11 blade was utilized to make an incision in the skin and a curved mini hemostat was utilized to puncture the ankle joint. Once this was performed, obturator and trocar were introduced. The obturator was then removed once in place and the 4.0 x 30 mm camera was then introduced and the joint was inspected. On initial inspection, there was some synovitis; however, not significantly extensive. The lateral portal was established at the anterolateral under direct visualization of the fluoroscopy light making sure not to damage the superficial peroneal nerve. From that standpoint, a stab incision was once again made and a curved mini was introduced, triangulating the tips of these 2 objects. Following this, the 3.5 mm shaver was then introduced and debridement took place of the ankle joint. Once this was performed, the impingement at the anterior inferior tibiofibular ligament was debrided. The cartilage was then probed, checking for any osteochondral defects of which there were none identified. Some delaminated cartilage was then shaved down and then the syndesmosis was then probed showing some laxity, so decision was made to remove the arthroscopic portion of the procedure and move on to stress views. At this time, a stab incision was made at the medial aspect and lateral aspect of the insertion of the Achilles tendon. This was carried down utilizing a blunt mini hemostat to the level of the posterior aspect of the tendon and the [place] triangle. Once this was performed, the obturator and trocar were introduced. Once again, the obturator was removed and then the 4.0 x 30 degree camera was introduced, inspecting the Achilles tendon and the [place] triangle as well as the retrocalcaneal bursa. These structures were shaved out of the site. The posterior aspect of the Achilles tendon was debrided utilizing the arthroscopic shaver. The dorsal aspect of the calcaneus was identified. The Achilles tendon was firmly adherent to the posterior aspect of the Holland deformity. Decision was made to avoid going forward with detaching the Holland's from its insertion site, so the Achilles tendon debridement took place at this time and no repair was performed. From that standpoint, attention was directed under fluoroscopic guidance. The syndesmosis was then stressed demonstrating no significant gapping at this point. A talar tilt was performed showing minimal gapping; however, on an anterior drawer with the lateral, it did demonstrate a significant amount of laxity of the lateral ankle ligament. Decision was made to proceed with the lateral ankle stabilization of both the ATFL and the CFL. This was carried out. Esmarch was then utilized to exsanguinate the leg and the tourniquet was set to 250 mmHg. A linear incision from the middle of the fibula with a curvilinear incision to the level of the anterior process of the calcaneus was carried down, making sure not to damage any neurovascular structures. The AITFL, ATFL, and the CFL were all identified. The ATFL was significantly attenuated and the footprint of the CFL was significantly higher anatomically than typical. From that standpoint, the 2.9 JuggerKnot was introduced into the palpable dell between the talar neck and body laterally and going in at approximately a 45-degree angle for the first limb of the InternalBrace. Once this was performed and checked under fluoroscopic guidance not to violate the tibiotalar or subtalar joint. From that standpoint, this gained adequate fixation. The foot was held in dorsiflexion when the fibula was drilled and the PEEK anchor 2.9 Betta Link was then introduced. Splitting the difference between this landmark were two 1.5 JuggerKnots drilled into the fibula with adequate fixation and this was used to repair the ATFL and CFL as well as adding a Reid modification reefing up the inferior extensor retinaculum. Once this was performed, new stress views were taken demonstrating significant improvement in the anterior drawer. Following this, copious amounts of sterile saline were utilize to flush the surgical site, 4-0 Monocryl was utilized to coapt the subcutaneous skin edges and then 3-0 nylon was utilized in a horizontal mattress-type fashion to coapt the skin in an everted-type fashion. Once this was performed, the wounds were cleansed with sterile saline and dressing consisting of iodine, Adaptic, 4 x 4, Kerlix, ABD, and posterior splint with sugar-tong was applied to the patient's right lower extremity with the foot orthogonal relative to longitudinal axis of the leg. Patient was then reversed from anesthesia and returned to the postoperative anesthesia care unit with vital signs stable and vascular status intact. Patient handled the anesthesia as well as the procedure without significant complications. Postoperative orders as indicated in the patient's discharge chart.
== END 2024-06-03 13:25 | disposition home or self-care (01) ==
LOC: SDC 06:31
PROVIDERS: ATTEND Podiatrist Foot & Ankle Surgery
DX: M65.871 Other synovitis and tenosynovitis, right ankle and foot (principal); M25.571 Pain in right ankle and joints of right foot; M25.371 Other instability, right ankle; M76.61 Achilles tendinitis, right leg; R26.2 Difficulty in walking, not elsewhere classified; M89.8X6 Other specified disorders of bone, lower leg
CPT/HCPCS: 27654; 27698; 29897; 36415; 73610; 76000; 80053; 85027; 87086; C1713; J0171; J0666; J0690; J1885; J2250; J2405; J2704; J2795; J3010; A9270-GY